=== PATIENT | female | born 1990 | race Caucasian/White ===

== ENCOUNTER 2017-11-28 13:13 | Observation (INO) | payer OTHER ==
[~2017-11-28] VITALS: Ht 170.2 cm; Wt 68.0 kg
[2017-11-28] MEDS ORDERED: ASPIRIN 81 MG CHEW TAB PO ONE (13:45)
[2017-11-28 14:10] LABS: BASOPHILS # (AUTO) 0.1 (0.0-0.1); BASOPHILS % 1.1 % (0.0-1.0); EOSINOPHILS # (AUTO) 0.1 (0.0-0.4); EOSINOPHILS % 1.9 % (0.0-6.0); HEMATOCRIT 41.8 % (34.2-44.1); HEMOGLOBIN 14.2 g/dL (12.0-16.0); LYMPHOCYTES # (AUTO) 1.8 (1.0-3.2); LYMPHOCYTES % 29.3 % (18.0-39.1); MEAN CORPUSCULAR HEMOGLOBIN 29.4 pg (28-32); MEAN CORPUSCULAR VOLUME 86.5 fL (81-99); MONOCYTES # (AUTO) 0.5 (0.2-0.8); MONOCYTES % 7.3 % (4.4-11.3); NEUTROPHILS # (AUTO) 3.8 (2.1-6.9); NEUTROPHILS % 60.2 % (38.7-80.0); PLATELET COUNT 206 x10e3/uL (140-360); RED BLOOD COUNT 4.83 x10e6/uL (3.6-5.1); RED CELL DISTRIBUTION WIDTH 12.1 % (11.7-14.4)
[2017-11-28 14:24] LABS: INR 0.98; PARTIAL THROMBOPLASTIN TIME 26.1 seconds (23.8-35.5); PROTHROMBIN TIME 12.2 seconds (11.9-14.5)
[2017-11-28 14:31] LABS: ALANINE AMINOTRANSFERASE 28 IU/L (0-55); ALBUMIN/GLOBULIN RATIO 1.4 (0.8-2.0); ALKALINE PHOSPHATASE 77 IU/L (40-150); ANION GAP 13.6 mmol/L (8-16); BLOOD UREA NITROGEN 13 mg/dL (7-26); BUN/CREATININE RATIO 14 (6-25); CALCIUM 9.4 mg/dL (8.4-10.2); CARBON DIOXIDE 24 mmol/L (22-29); CHLORIDE 108 mmol/L (98-107); CREATINE KINASE 82 IU/L (29-168); EST GLOMERULAR FILTRATION RATE > 60 ML/MIN (60-); GLUCOSE 120 mg/dL (74-118); POTASSIUM 3.6 mmol/L (3.5-5.1); SODIUM 142 mmol/L (136-145)
[2017-11-28 14:39] LABS: CLARITY,URINE CLEAR (CLEAR); COLOR,URINE YELLOW (YELLOW); KETONES,URINE NEGATIVE (NEGATIVE); LEUKOCYTE ESTERASE ,URINE NEGATIVE (NEGATIVE); NITRITE,URINE NEGATIVE (NEGATIVE); PROTEIN,URINE DIPSTICK NEGATIVE (NEGATIVE); URINE UROBILINOGEN 0.2 mg/dL (0.2 - 1)
[2017-11-28 14:40] LABS: BILIRUBIN,URINE NEGATIVE (NEGATIVE)
[2017-11-28 14:55] LABS: BACTERIA,URINE MODERATE /HPF; EPITHELIAL CELLS,URINE FEW /LPF
--- NOTE | 2017-11-28 15:41 | Diagnostic Imaging Report ---
Frontal and lateral views of the chest. HISTORY: Palpitations, chest pain COMPARISON: Chest radiograph November 13, 2017 DISCUSSION: Lungs: Mild left basilar atelectasis. No evidence of a consolidative pneumonia or pulmonary alveolar edema. Pleura: No pleural effusion or pneumothorax. Heart and mediastinum: The cardiomediastinal silhouette appears unremarkable. Bones: No acute osseous lesion. Other: Metallic clips in the right upper quadrant of the abdomen are compatible with prior cholecystectomy. IMPRESSION: 1. Mild left basilar atelectasis. 2. Status post cholecystectomy. Signed by: Dr. Thomas Veronica D.O., M.M.M. on 11/28/2017 3:37 PM
[2017-11-28] MEDS ORDERED: LORAZEPAM 1 MG TAB PO ONE (16:00)
[2017-11-28] MEDS ORDERED: LORAZEPAM 0.5 MG TAB PO PRN (17:00)
[2017-11-28 19:07] VITALS: BP 113/73
[2017-11-28 19:08] VITALS: BP 113/73
[2017-11-28 19:09] VITALS: BP 113/73
[2017-11-28 21:15] LABS: CREATINE KINASE 72 IU/L (29-168)
[2017-11-29 00:04] VITALS: BP 111/60
--- NOTE | 2017-11-29 00:30 | Consultation ---
DATE OF CONSULTATION: November 28, 2017 REFERRING PHYSICIAN: Dr. Jack Fuller REASON FOR CONSULT: Palpitations. HISTORY OF PRESENT ILLNESS: This is a 27-year-old woman with no significant past medical history, who has had several episodes of palpitations. She states she has had palpitations all her life that she feels her heart is racing for about 5 to 10 seconds. However, she has not sought medical attention in the past, she has had worsening of the symptoms for the last 3 weeks. She feels palpitations about at least once a day. When she had these episodes, her heart rate goes up to 160 to 170. She feels dizzy and weak, but then when it goes away, she feels back to normal, she had an episode that lasted about 1 hour, this time she has been evaluated by Dr. Fuller in clinic, underwent a Holter monitor for 48 hours and had no episodes. However, this time she had a bad episode that lasted about 45 minutes. She felt very bad, so decided to come to the hospital. She was admitted for overnight monitoring, on telemetry, currently in sinus rhythm. No documentation of tachycardias. She states she had 2 or 3 episodes of syncope when she was a teenager when she was around 9 or 10 years old, is unclear as of details of the episodes, but there is no history of cardiac arrest. REVIEW OF SYSTEMS: CONSTITUTIONAL: Negative. CARDIOVASCULAR: As per HPI, otherwise negative. RESPIRATORY: Negative. GASTROINTESTINAL: Negative. GENITOURINARY: Negative. MUSCULOSKELETAL: Negative. EYES: Negative. ENT: Negative. ALLERGY/IMMUNOLOGY: Negative. PSYCHIATRIC: Negative. All other systems negative. PAST MEDICAL HISTORY: Negative. SURGICAL HISTORY: Negative. SOCIAL HISTORY: Denies smoking, alcohol. FAMILY HISTORY: There is no premature coronary artery disease or sudden cardiac . PHYSICAL EXAMINATION: VITAL SIGNS: Blood pressure 100/ 60, pulse 70, respiration 20, O2 sat is 98%. GENERAL: In no acute distress. HEENT: Moist mucous membranes. CARDIOVASCULAR: Regular rhythm. RESPIRATORY: Clear. ABDOMEN: Soft, nontender. MUSCULOSKELETAL: 2+ distal pulses. NEUROLOGICAL: No focal deficit. SKIN: No lesions. PSYCHIATRY: Normal thought process. EKG: Sinus rhythm, normal intervals, incomplete right bundle-branch block of V1. IMPRESSION: Palpitations of unknown tachycardias. RECOMMENDATIONS: I had a long discussion with the patient. At this time, history sounds like SVT, however, there is no documentation of any tachycardias so far. Agree with overnight monitoring on telemetry. In the event that we see some SVT episodes, then will go ahead and plan for an EP study, SVT ablation. However, if there are no episodes overnight, I will consider doing low-dose beta arron and then discharge home to arrange for an event monitor for 2 or 3 weeks. Once we have documentation of the tachycardia, then will discuss different options, explained the ablation procedure in detail. Patient is very interested depending on further clinical course. Thank you for letting us participate in [facility]. Will follow up as an outpatient. Job#: [id number] DR LOYOLA
[2017-11-29 03:57] VITALS: BP 98/64
[2017-11-29 05:31] LABS: CHOLESTEROL 180 MD/DL (0-199); CREATINE KINASE 64 IU/L (29-168); HDL CHOLESTEROL 45 MG/DL (40-60); LDL CHOLESTEROL 114 MG/DL (60-130); TRIGLYCERIDES 107 MG/DL (0-149)
[2017-11-29 07:46] VITALS: BP 118/66
[2017-11-29] MEDS ORDERED: ASPIRIN 81 MG CHEW TAB PO SCH (09:00)
--- NOTE | 2017-11-29 10:51 | History and Physical ---
CHIEF COMPLAINT: Palpitations and weakness. HISTORY OF PRESENT ILLNESS: Patient is a 27-year-old female with no prior medical history, who presents with episodes of palpitations and feeling like her heart is racing and feeling weak. She says that when she was a teenager, she used to have episodes of heart racing as well as presyncope which improved on their own, but now have returned. She denies any chest pain, shortness of breath, or diaphoresis associated with episodes; however, she does feel dizzy and weak whenever she has palpitations. Episodes last from several minutes to several hours in duration. No presyncope or syncope. She has no family history of sudden cardiac . PAST MEDICAL HISTORY: None. PAST SURGICAL HISTORY: None. MEDICATIONS: None. REVIEW OF SYSTEMS: Ten-point review of systems was negative other than what is stated in the history of present illness. SOCIAL HISTORY: Denies smoking, alcohol, or drug use. FAMILY HISTORY: No history of sudden cardiac or coronary artery disease. PHYSICAL EXAMINATION VITALS: Temperature 96.8, pulse 87, respiratory rate 21, blood pressure 118/66, satting 98% on room air. GENERAL: Young female, in no acute distress, well developed, well-nourished. CARDIOVASCULAR: Regular rate and rhythm. PMI nondisplaced. Normal S1, S2. No murmurs, rubs, or gallops. Normal carotid pulses. Normal radial pulses. Normal pedal pulses. LABORATORY DATA: Reviewed. Notable for negative test, negative cardiac enzymes, normal TSH. MEDICATIONS: Reviewed. IMAGING DATA: Reviewed. TELEMETRY DATA: Reviewed, shows sinus tachycardia. ASSESSMENTS 1. Palpitations. 2. Suspected supraventricular tachycardia. 3. Lower extremity swelling. PLANS: Will get an echocardiogram to evaluate LV function given new onset lower extremity swelling. We will start her on metoprolol to help reduce episodes of SVT. Discussed with electrophysiology. Will send patient home on event monitor, which she can package pick up from the office and once arrhythmia is documented, EP can see her for potential ablation at that point. If the echo is normal, patient is okay to go home. Job#: [id number] KARMA
[2017-11-29 11:22] VITALS: BP 123/84
[2017-11-29] MEDS ORDERED: METOPROLOL TARTRATE 25 MG TAB PO SCH (12:00)
[2017-11-29 15:10] VITALS: BP 112/61
[2017-11-29] MEDS ORDERED: METOPROLOL SUCC50 MG PO (15:34)
== END 2017-11-29 15:47 | disposition home or self-care (01) ==
LOC: ER 13:13 → ERHOLD 17:05 → IMCU 18:27
PROVIDERS: ADMIT Internal Medicine; ATTEND Internal Medicine
DX: R00.2 Palpitations (principal); R00.0 Tachycardia, unspecified; M79.89 Other specified soft tissue disorders; Z88.0 Allergy status to penicillin
CPT/HCPCS: 36415 ×2; 71046; 80053; 80061; 81001; 82550 ×2; 82553 ×2; 83735; 83880; 84484 ×2; 84702; 85025; 85610; 85730; 93005; 93306; 99284; G0378 ×2